=== PATIENT | female | born 1980 | race Two or more races ===

== ENCOUNTER 2021-07-09 18:02 | Emergency (ER) | payer SELFPAY ==
[~2021-07-09] VITALS: Ht 165.1 cm; Wt 71.2 kg
--- NOTE | 2021-07-09 19:28 | NUR ---
PT [facility] AND [employer] ON A HOLD FOR GD & DTO. ADMITS TO USING METH AND [employer]LIN DUST. PT ALERT AND RESPONSIVE WHEN SPOKEN TO, WITH NON LABORED BREATHING.
--- NOTE | 2021-07-09 19:36 | NUR ---
covid swab done and sent to lab
[2021-07-09 20:05] LABS: CALCIUM, SERUM 8.4 mg/dL (8.5-10.1); CARBON DIOXIDE 30 mmol/L (21-32); CHLORIDE 106 mmol/L (98-107); CREATININE 0.8 mg/dL (0.6-1.3); GLUCOSE 96 mg/dL (74-106); POTASSIUM 3.6 mmol/L (3.5-5.1); SODIUM SERUM 143 mmol/L (136-145); UREA NITROGEN, BLOOD 25 mg/dL (7-18)
[2021-07-09 20:10] LABS: ALANINE AMINOTRANSFERASE 21 U/L (12-78); ALBUMIN 3.7 g/dL (3.4-5.0); ALKALINE PHOSPHATASE 74 U/L (46-116); ASPARTATE AMINOTRANSFERASE 15 U/L (15-37); BILIRUBIN,DIRECT 0.1 mg/dL (0.0-0.2); BILIRUBIN,TOTAL 0.4 mg/dL (0.2-1.0); TOTAL PROTEIN, SERUM 7.8 g/dL (6.4-8.2)
[2021-07-09 20:18] LABS: ACETAMINOPHEN 0 ug/ml (10-30); ALCOHOL, BLOOD < 3 mg/dL (0-0)
[2021-07-09] MEDS: IV NS 0.9% 1,000 ML BAG IV ONE (20:46)
[2021-07-09 20:55] LABS: BASOPHILS # (AUTO) 0.1 K/uL (0.0-0.2); BASOPHILS % (AUTO) 0.8 % (0.0-2.0); EOSINOPHILS % (AUTO) 1.3 % (0.0-6.0); HEMATOCRIT 35 % (33-45); HEMOGLOBIN 11.4 g/dL (11.5-14.8); LYMPHOCYTES # (AUTO) 1.9 K/uL (0.8-4.8); LYMPHOCYTES % (AUTO) 23.3 % (20.0-44.0); MEAN CORPUSCULAR HGB CONC 33 g/dl (31.0-36.0); MEAN CORPUSCULAR VOLUME 88 fL (82-100); MONOCYTES # (AUTO) 0.3 K/uL (0.1-1.30); MONOCYTES % (AUTO) 4.3 % (2.0-12.0); NEUTROPHILS # (AUTO) 5.6 K/uL (1.8-8.9); NEUTROPHILS % (AUTO) 70.3 % (43.0-81.0); PLATELET COUNT (AUTO) 404 K/uL (150-450); RED BLOOD CELL COUNT(AUTO) 3.97 MIL/uL (4.0-5.2)
[2021-07-09] MEDS ORDERED: OLANZAPINE 5 MG TABLET ONE (20:56)
[2021-07-09] MEDS: OLANZAPINE 5 MG TABLET PO ONE (20:59)
[2021-07-10 04:41] LABS: BILIRUBIN,URINE NEGATIVE (NEGATIVE); COLOR,URINE YELLOW (YELLOW); LEUKOCYTE ESTERASE ,URINE NEGATIVE (NEGATIVE); NITRITE, URINE POSITIVE (NEGATIVE); PROTEIN,URINE NEGATIVE (NEGATIVE); UGLUCOSE NEGATIVE (NEGATIVE); UROBILINOGEN,URINE 0.2 EU/dL (0.2)
[2021-07-10 05:14] LABS: BACTERIA,URINE Many /HPF (None Seen); RBC,URINE 0-2 /HPF (0-2); SQUAMOUS EPITHELIAL CELL,UR Few /HPF (None Seen)
--- NOTE | 2021-07-10 10:10 | NUR ---
PT AMBULATORY TO RESTROOM ACCOMPNIED BY SITTER. PT VERBALLY RESPONSIVE. DENIES SI. STATES "I WANT TO GO BACK TO THE PARK NOW." WILL CONTINUE TO MONITOR
--- NOTE | 2021-07-10 10:25 | NUR ---
CALLED ART AND WAS NOTIFIED OF PT STATUS. NOW HE WILL EVALUATE THE PT.
--- NOTE | 2021-07-10 16:45 | NUR ---
ART STUDENT SUPPORT ADVISOR AT BEDSIDE FOR PSYCH EVAL.
--- NOTE | 2021-07-10 20:07 | NUR ---
Patient discharged to home in stable condition. Written and verbal after care instructions given. Patient verbalizes understanding of instruction.
[2021-07-10 20:08] VITALS: BP 133/78
== END 2021-07-10 20:12 | disposition home or self-care (01) ==
LOC: ER 18:04
DX: F29 Unspecified psychosis not due to a substance or known physiological condition (principal); D64.9 Anemia, unspecified; Z20.822 Contact with and (suspected) exposure to COVID-19; Z59.00 Homelessness unspecified; F15.90 Other stimulant use, unspecified, uncomplicated; R45.851 Suicidal ideations; Z82.49 Family history of ischemic heart disease and other diseases of the circulatory system
CPT/HCPCS: 36415; 80048; 80076; 80143; 80307; 80320; 81001; 84703; 85025; 87077; 87086; 87186; 87426; 96360; 99285; C9803; J7030; G0480